=== PATIENT | female | born 1955 | race Caucasian/White ===

== ENCOUNTER 2020-09-29 07:19 | Day surgery (SDC) | payer BC ==
[2020-09-29] MEDS: Lactated Ringers 1,000 ML IV SCH (08:16)
[2020-09-29] MEDS ORDERED: Midazolam 1 MG/ML 2 ML SDV ONE (08:54)
[2020-09-29] MEDS ORDERED: fentaNYL 100 MCG/2 ML SDV ONE (08:54)
[2020-09-29] MEDS ORDERED: Propofol 200 MG/20 ML SDV ONE (08:54)
--- NOTE | 2020-09-29 13:47 | OR ---
DATE OF SURGERY: 09/29/2020. REFERRING PROVIDER: Carmen Mendez MD PRE-OPERATIVE DIAGNOSES: 1. History of colon polyps. Last colonoscopy was 5 years ago. She had normal colonoscopy in 2015, normal in 2010, and some hyperplastic polyps in 2005. 2. Positive family history of colon cancer in brother who was diagnosed in his early 40s. POST-OPERATIVE DIAGNOSES: 1. Total of 6 polyps removed today. a. 10 mm and 6 mm sessile polyps at 75 cm, both removed using hot snare. b. 5 mm polyp at 60 cm, removed using hot snare. c. 3 mm polyp at 45 cm, removed using cold forceps. d. 3 mm rectal polyp x2, both removed using cold forceps. 2. Mild sigmoid diverticulosis. 3. Some minimal sigmoid inflammation was noted. Cold biopsy x2 bites taken. 4. Normal-appearing terminal ileum. 5. Several tiny hyperplastic appearing polyps noted within the sigmoid and rectal areas. These were all 2 mm or less in size. PROCEDURE: Colonoscopy with polypectomy x6 (3 using hot snare and 3 using cold forceps) and cold biopsy x1 site (sigmoid colon). SURGEON: Heber Ferraro M.D. ANESTHESIA: Monitored anesthesia care. BOWEL PREP: Good. Yennifer is a 65-year-old female who was brought to the endoscopy suite after discussing risks and benefits of the procedure. Informed consent was obtained for conscious sedation and colonoscopy with or without biopsy and/or polypectomy. We also discussed possibility of missed lesions. Pre-procedure exam was unremarkable. IV, oxygen, and monitors were placed. The patient was placed in the left lateral decubitus position. Sedation was administered and a digital rectal exam was performed and unremarkable. Colonoscope was passed into the rectum and slowly advanced all the way to the cecum. Cecum was viewed and photographed. Ileocecal valve was intubated and terminal ileum was normal in appearance. The colonoscope was slowly withdrawn and the mucosa was closed observed in a direct circumferential manner. The ascending colon was unremarkable. The transverse colon revealed 10 mm and 6 mm sessile polyps at 75 cm, both removed using hot snare with a few passes. Transverse colon also revealed 5 mm polyp at 60 cm, removed using hot snare. The descending colon was unremarkable. The sigmoid colon did reveal some mild diverticulosis. The 3 mm polyp noted at 45 cm. There was some minimal sigmoid inflammation and cold biopsy x2 bites taken from the scattered areas. Retroflexion was performed and rectal mucosa was unremarkable. The distal sigmoid and rectal areas did contain several tiny hyperplastic appearing polyps which were all 2 mm or less in size and not worrisome in appearance. She does have the previous history of hyperplastic polyps in the past as well. Scope was removed. The patient tolerated the procedure well. The patient was monitored until that baseline status. Discharge instructions were reviewed and the patient was discharged in good condition. COMPLICATIONS: None. TOTAL TIME: 34 minutes. ESTIMATED BLOOD LOSS: About 1 mL. RECOMMENDATIONS/FOLLOW-UP: We will await results of path report to determine ideal followup interval. I would like to kindly thank Dr. Mendze for this referral. DMB: 09/29/2020 10:04:32 MODL: 09/29/2020 11:09:57 /[id number]
== END 2020-09-29 10:40 | disposition home or self-care (01) ==
LOC: VM.SDS 07:19
PROVIDERS: ATTEND Family Medicine
DX: Z12.11 Encounter for screening for malignant neoplasm of colon (principal); D12.6 Benign neoplasm of colon, unspecified; K57.30 Diverticulosis of large intestine without perforation or abscess without bleeding; K52.89 Other specified noninfective gastroenteritis and colitis; I10 Essential (primary) hypertension; L71.9 Rosacea, unspecified; E78.5 Hyperlipidemia, unspecified; G47.30 Sleep apnea, unspecified; E66.9 Obesity, unspecified; F17.210 Nicotine dependence, cigarettes, uncomplicated; Z68.37 Body mass index [BMI] 37.0-37.9, adult; Z88.8 Allergy status to other drugs, medicaments and biological substances; Z80.0 Family history of malignant neoplasm of digestive organs; Z86.010 Personal history of colon polyps
CPT/HCPCS: 00811; 45380; 45385; J2250; J2704; J3010; J7120

== ENCOUNTER 2024-01-26 17:43 | Emergency (ER) | payer OTHER, MEDICARE, BC ==
[2024-01-26] MEDS: Lidocaine 1% 30 ML SDV INJECT ONE (18:35)
== END 2024-01-26 20:05 | disposition home or self-care (01) ==
LOC: VM.ED 17:43 → SUPCPDRO 17:43 → VM.ED 20:05
DX: S01.81XA Laceration without foreign body of other part of head, initial encounter (principal); E78.00 Pure hypercholesterolemia, unspecified; I10 Essential (primary) hypertension; E66.9 Obesity, unspecified; Z68.34 Body mass index [BMI] 34.0-34.9, adult; F17.210 Nicotine dependence, cigarettes, uncomplicated; Z79.899 Other long term (current) drug therapy; Z91.048 Other nonmedicinal substance allergy status; Z88.1 Allergy status to other antibiotic agents; Z88.8 Allergy status to other drugs, medicaments and biological substances; V86.35XA Unspecified occupant of 3- or 4- wheeled all-terrain vehicle (ATV) injured in traffic accident, initial encounter
CPT/HCPCS: 12015; 70450; 99283; J3490